=== PATIENT | female | born 1985 | race Caucasian/White ===

== ENCOUNTER → 2019-01-26 08:28 | Outpatient (CLI) | payer MEDICAID, SELFPAY ==
--- NOTE | 2019-01-26 08:31 | RAD_ITS ---
STUDY: AIR-CONTRAST UPPER GI SERIES. REASON FOR EXAM: Female, 33 years old. Heartburn. FLUOROSCOPY TIME (if supplied): (1:12) minutes/seconds. 20 images were obtained. TECHNIQUE: The patient ingested barium. Multiple images of the esophagus, stomach and duodenum were obtained. COMPARISON: None. FINDINGS: The esophagus is unremarkable. There is no evidence of esophageal obstruction. No mass lesion is seen. No evidence of gastroesophageal reflux. The stomach and duodenum are unremarkable. RAD/Upper GI Series Only IMPRESSION: Unremarkable air contrast upper GI series. Electronically Signed: Pedro Pablo Gale, at 14:06 EDT , Service support ,
== END ==
PROVIDERS: Family Provider Family Medicine; PCP Family Medicine; Referring Provider Nurse Practitioner Adult Health; Visit Provider Nurse Practitioner Adult Health
DX: K30 Functional dyspepsia (principal); R12 Heartburn; R09.89 Other specified symptoms and signs involving the circulatory and respiratory systems
CPT/HCPCS: 74246